=== PATIENT | male | born 1960 | race Caucasian/White ===

== ENCOUNTER 2019-12-30 11:05 | Outpatient (REF) | payer OTHER, SELFPAY | END 2019-12-30 11:06 | disposition home or self-care (01) | LOC: HO.LAB 11:05 | PROVIDERS: PCP Internal Medicine; Visit Provider Internal Medicine | DX: Z20.828 Contact with and (suspected) exposure to other viral communicable diseases (principal) | CPT/HCPCS: C9803; U0003 ==